=== PATIENT | male | born 1960 | race African-American/Black ===

== ENCOUNTER 2019-03-04 18:29 | Emergency (ER) | payer MEDICAID ==
[~2019-03-04] VITALS: Ht 182.9 cm; Wt 94.0 kg
[~2019-03-04 18:29] MED LIST: BENA40TA9 PO; CLOP75TA4 PO; GABA-533 PO; HYDR25TA PO; METF-414 PO; METO100T16 PO; NIAC500C8 PO; NIAC500T2 PO
[2019-03-04] MEDS ORDERED: MORPHINE SULFATE 4 MG/ML CPJ (NOT FOR IM USE) IV STA (19:47)
[2019-03-04] MEDS ORDERED: ONDANSETRON HCL 4MG/2ML INJ IV STA (19:47)
[2019-03-04 20:07] LABS: BASOPHILS % 0.8 % (0.0-2.0); EOSINOPHILS % 4.4 % (0.0-5.0); HEMATOCRIT. 45.1 % (42.0-52.0); HEMOGLOBIN. 15.8 g/dL (14.0-18.0); LYMPHOCYTES % 27.8 % (20.0-50.0); MEAN CORPUSCULAR HEMOGLOBIN 30.4 pg (28.0-32.0); MEAN PLATELET VOLUME 8.4 fl (7.4-10.4); MONOCYTES % 6.5 % (2.0-8.0); NEUTROPHILS % 60.5 % (40.0-76.0); PLATELET 189 x1000/uL (130-400); RED BLOOD CELL COUNT 5.18 mill/uL (4.7-6.1); RED CELL DISTRIBUTION WIDTH 13.3 % (11.6-14.6)
[2019-03-04 20:11] LABS: CHLORIDE 106 mEq/L (98-107)
[2019-03-04 20:12] LABS: PROTHROMBIN TIME 10.7 sec (9.6-11.0)
[2019-03-04] MEDS ORDERED: POTASSIUM CHLORIDE 20MEQ TABLET SR PO NR (21:15)
[2019-03-04 21:49] VITALS: BP 134/90
== END 2019-03-04 21:53 | disposition home or self-care (01) ==
LOC: ER 18:52
DX: S22.31XA Fracture of one rib, right side, initial encounter for closed fracture (principal); S09.8XXA Other specified injuries of head, initial encounter; E87.6 Hypokalemia; E11.9 Type 2 diabetes mellitus without complications; E78.00 Pure hypercholesterolemia, unspecified; I10 Essential (primary) hypertension; W07.XXXA Fall from chair, initial encounter; Y93.89 Activity, other specified; Y92.89 Other specified places as the place of occurrence of the external cause; Z86.73 Personal history of transient ischemic attack (TIA), and cerebral infarction without residual deficits
CPT/HCPCS: 36415; 70450; 71045; 71100; 80053; 85025; 85610; 86850; 86900; 86901; 93005; 96374; 99284; J2270; Z7610